=== PATIENT | female | born 1955 | race Caucasian/White ===

== ENCOUNTER 2022-09-11 08:20 | Outpatient (CLI) | payer OTHER | END 2022-09-11 08:34 | disposition home or self-care (01) | LOC: MAMO-SONO 08:20 | PROVIDERS: ATTEND Internal Medicine | DX: I11.9 Hypertensive heart disease without heart failure (principal); R10.10 Upper abdominal pain, unspecified; Z12.31 Encounter for screening mammogram for malignant neoplasm of breast; N64.4 Mastodynia; E04.1 Nontoxic single thyroid nodule ==

== ENCOUNTER 2022-09-29 09:56 | Outpatient (CLI) | payer OTHER | END 2022-09-29 09:58 | disposition home or self-care (01) | LOC: SONOGRAMA 09:56 | PROVIDERS: ATTEND Pathology Anatomic Pathology & Clinical Pathology | DX: D34 Benign neoplasm of thyroid gland (principal); E04.1 Nontoxic single thyroid nodule; E07.9 Disorder of thyroid, unspecified ==

== ENCOUNTER 2023-10-26 10:43 | Outpatient (CLI) | payer OTHER | END 2023-10-26 10:48 | disposition home or self-care (01) | LOC: SONOGRAMA 10:43 | PROVIDERS: ATTEND Pathology Anatomic Pathology & Clinical Pathology | DX: D34 Benign neoplasm of thyroid gland (principal); E07.89 Other specified disorders of thyroid; E04.1 Nontoxic single thyroid nodule ==

== ENCOUNTER 2025-02-14 09:46 | Outpatient (CLI) | payer OTHER | END 2025-02-14 09:55 | disposition home or self-care (01) | LOC: MRI 09:46 | PROVIDERS: ATTEND Internal Medicine | DX: R41.3 Other amnesia (principal); E78.1 Pure hyperglyceridemia; R73.01 Impaired fasting glucose; E55.9 Vitamin D deficiency, unspecified | CPT/HCPCS: 70552; Q9965 ==